=== PATIENT | female | born 1945 | race Caucasian/White ===

== ENCOUNTER 2018-03-02 10:18 | Emergency (ER) | payer OTHER ==
--- NOTE | 2018-03-02 11:47 | ER ---
Nurse's Notes [facility] Name: Danielle Henderson Age: 72 yrs Sex: Female : 1945 Arrival Date: 03/02/2018 Time: 10:23 Bed 12 Private MD: Pérez Dietz Diagnosis: Pain in right foot Presentation: 03/02 10:26 Presenting complaint: Patient states: "i have injured my right arch and ankle area, i tw2 was helping my youngest move this weekend". Transition of care: patient was not received from another setting of care. Onset of symptoms was March 02, 2018. Care prior to arrival: None. 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 - Social history:: Smoking status: Patient/guardian denies using tobacco. Screenin:58 Abuse screen: Denies threats or abuse. Nutritional screening: No deficits noted. tw2 Tuberculosis screening: No symptoms or risk factors identified. Fall Risk None identified. Assessment: 10:58 General: Appears in no apparent distress. well groomed, Behavior is calm, cooperative, tw2 appropriate for age. Pain: Complains of pain in medial aspect of right foot, anterior aspect of right ankle and dorsum of right foot. 11:24 Reassessment: Patient appears in no apparent distress at this time. No changes from tw2 previously documented assessment. Patient and/or family updated on plan of care and expected duration. Pain level reassessed. Patient is alert, oriented x 3, equal unlabored respirations, skin warm/dry/pink. Vital Signs: 10:27 BP 153 / 81; Pulse 86; Resp 17; Temp 98.8(O); Pulse Ox 98% on R/A; Weight 77.11 kg (R); tw2 Height 5 ft. 1 in. (154.94 cm) (R); Pain 6/10; 11:33 BP 146 / 82; Pulse 81; Resp 17; Pulse Ox 97% on R/A; Pain 5/10; tw2 10:27 Body Mass Index 32.12 (77.11 kg, 154.94 cm) tw2 ED Course: 10:23 Patient arrived in ED. mr 10:23 Pérez Dietz MD is Private Physician. mr 10:27 Triage completed. tw2 10:30 Arm band placed on. tw2 10:36 Kareem Keith PA is PHCP. jr8 10:36 Loki Greene MD is Attending Physician. jr8 10:58 Donna Kumar, RN is Primary Nurse. tw2 10:58 Bed in low position. Call light in reach. Adult w/ patient. tw2 10:58 No provider procedures requiring assistance completed. tw2 11:44 XRAY Foot RIGHT 3 View In Process Unspecified. EDMS 11:45 Tristan Hernandez DPM is Referral Physician. jr8 11:58 Patient did not have IV access during this emergency room visit. hb Administered Medications: No medications were administered Outcome: 11:46 Discharge ordered by MD. jr8 11:57 Discharged to home via wheelchair, with family. hb 11:57 Condition: stable 11:57 Discharge instructions given to patient, family, Instructed on discharge instructions, follow up and referral plans. Demonstrated understanding of instructions, follow-up care. 11:58 Patient left the ED. hb Signatures: Dispatcher [employer] EDIveth Edward mr Kareem Keith PA PA jr8 Leanna Pugh RN RN Donna Kumar RN RN tw2
--- NOTE | 2018-03-02 11:47 | EDPHYS ---
Physician Documentation [facility] Name: Danielle Henderson Age: 72 yrs Sex: Female : 1945 Arrival Date: 03/02/2018 Time: 10:23 Bed 12 Private MD: Pérez Dietz ED Physician Loki Greene HPI: 03/02 11:11 This 72 yrs old Female presents to ER via Wheelchair with complaints of Foot jr8 Pain. 11:11 The patient presents with pain, tenderness. The complaints affect the medial aspect of jr8 right foot. Context: The problem was sustained at home, resulted from an unknown cause. Onset: The symptoms/episode began/occurred gradually, 2 day(s) ago. Modifying factors: The symptoms are alleviated by nothing. the symptoms are aggravated by weight bearing. Associated signs and symptoms: Pertinent positives:. Severity of symptoms: At their worst the symptoms were mild, in the emergency department the symptoms are unchanged. The patient has not experienced similar symptoms in the past. The patient has not recently seen a physician. Patient stated that she was helping relative move boxes and other items the other day. Now having right foot pain. Worse with weight bearing . 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 - Social history:: Smoking status: Patient/guardian denies using tobacco. ROS: 11:11 Eyes: Negative for injury, pain, redness, and discharge, ENT: Negative for injury, jr8 pain, and discharge, Neck: Negative for injury, pain, and swelling, Cardiovascular: Negative for chest pain, palpitations, and edema, Respiratory: Negative for shortness of breath, cough, wheezing, and pleuritic chest pain, Abdomen/GI: Negative for abdominal pain, nausea, vomiting, diarrhea, and constipation, Back: Negative for injury and pain, Skin: Negative for injury, rash, and discoloration, Neuro: Negative for headache, weakness, numbness, tingling, and seizure. 11:11 MS/extremity: Positive for pain, tenderness, of the right foot. Exam: 11:11 Cardiovascular: Regular rate and rhythm with a normal S1 and S2. No gallops, murmurs, jr8 or rubs. Normal PMI, no JVD. No pulse deficits. Respiratory: Lungs have equal breath sounds bilaterally, clear to auscultation and percussion. No rales, rhonchi or wheezes noted. No increased work of breathing, no retractions or nasal flaring. Skin: Warm, dry with normal turgor. Normal color with no rashes, no lesions, and no evidence of cellulitis. Neuro: Awake and alert, GCS 15, oriented to person, place, time, and situation. Cranial nerves II-XII grossly intact. Motor strength 5/5 in all extremities. Sensory grossly intact. Cerebellar exam normal. Normal gait. 11:11 Musculoskeletal/extremity: Extremities: grossly normal except: noted in the medial aspect of right foot: pain, tenderness, ROM: intact in all extremities, full active range of motion, full passive range of motion, Circulation is intact in all extremities. Sensation intact. Vital Signs: 10:27 BP 153 / 81; Pulse 86; Resp 17; Temp 98.8(O); Pulse Ox 98% on R/A; Weight 77.11 kg (R); tw2 Height 5 ft. 1 in. (154.94 cm) (R); Pain 6/10; 11:33 BP 146 / 82; Pulse 81; Resp 17; Pulse Ox 97% on R/A; Pain 5/10; tw2 10:27 Body Mass Index 32.12 (77.11 kg, 154.94 cm) tw2 MDM: 10:36 Patient medically screened. jr8 11:45 Data reviewed: vital signs, nurses notes, radiologic studies, plain films, and as a jr8 result, I will discharge patient. Data interpreted: Pulse oximetry: on room air is 97 %. Interpretation: normal. Counseling: I had a detailed discussion with the patient and/or guardian regarding: the historical points, exam findings, and any diagnostic results supporting the discharge/admit diagnosis, radiology results, the need for outpatient follow up, a facility service associate, to return to the emergency department if symptoms worsen or persist or if there are any questions or concerns that arise at home. 03/02 11:10 Order name: XRAY Foot RIGHT 3 View jr8 Administered Medications: No medications were administered Disposition: 12:41 Co-signature as Attending Physician, Loki Greene MD. rn Disposition: 03/02/18 11:46 Discharged to Home. Impression: Pain in right foot. - Condition is Stable. - Discharge Instructions: Foot Contusion, Plantar Fasciitis. - Medication Reconciliation Form, Thank You Letter, Antibiotic Education, Prescription Opioid Use form. - Follow up: Tristan Hernandez DPM; When: 5 - 6 days; Reason: Recheck today's complaints, Continuance of care, Re-evaluation by your physician. - Problem is new. - Symptoms have improved. Signatures: Dispatcher [employer] EDMS Loki Greene MD MD rn Roszak, Josh, PA PA jr8 Leanna Pugh RN RN Donna Kumar RN RN tw2
--- NOTE | 2018-03-02 11:58 | RAD REPORT ---
EXAM DESCRIPTION: RAD - Foot Right 3 View - 03/02/2018 11:43 am CLINICAL HISTORY: Foot and ankle pain. COMPARISON: None. 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 Prominent c alcaneal spur is noted along the plantar aspect. No acute fracture or dislocation seen.
== END 2018-03-02 11:58 | disposition home or self-care (01) ==
LOC: ER 10:18
DX: M79.671 Pain in right foot (principal); Z88.6 Allergy status to analgesic agent; Z88.0 Allergy status to penicillin
CPT/HCPCS: 99283

== ENCOUNTER 2019-11-22 10:48 | Emergency (ER) | payer OTHER ==
[2019-11-22] MEDS ORDERED: MECLIZINE HCL 12.5 MG TAB ONE (11:28)
[2019-11-22] MEDS ORDERED: NA CHLORIDE 0.9% 500 ML ONE (11:28)
--- NOTE | 2019-11-22 11:43 | RAD REPORT ---
EXAM DESCRIPTION: CT - Ct Stroke Brain Wo Cont - 11/22/2019 11:33 am CLINICAL HISTORY: Dizziness COMPARISON: 2012 TECHNIQUE: Computed axial tomography of the head was obtained. All CT scans are performed using dose optimization technique as appropriate and may include automated exposure control or mA/KV adjustment according to patient size. FINDINGS: An intracranial bleed is not seen . The ventricles are normal in caliber. No extra-axial fluid collection is noted. Small low-density areas within the right frontal and left p arietal lobes are unchanged Right shunt traverses through the right and left lateral ventricles. The tip lies 2 centimeters into the left frontal lobe parenchyma. A was present within the frontal lobe parenchyma on the prior exam. Fluid within the sinuses/ mastoids is not seen. IMPRESSION: No acute intracranial abnormality is seen. If patient's symptoms persist MRI of the bra in would be recommended. Dr Greene of the emergency room was notified at 11:33 a.m. November 22, 2019
[2019-11-22 12:06] LABS: Absolute Lymphocytes (CBC) 1.8 K/uL (0.7-4.9); Basophils % 0.2 % (0-1.3); Hematocrit 41.8 % (36.0-45.0); Lymphocytes % 26.2 % (15.3-44.8); MPV 9.3 fL (7.6-11.3); RBC Red Blood Cell Count 4.61 M/uL (3.86-4.86)
[2019-11-22 12:13] LABS: BUN Blood Urea Nitrogen 16 mg/dL (7-18); Bicarbonate 26 mmol/L (21-32); Glucose Level 112 mg/dL (74-106); Magnesium 2.1 mg/dL (1.8-2.4); Potassium 4.4 mmol/L (3.5-5.1); Sodium Level 141 mmol/L (136-145); Troponin (Emerg Dept Use Only) < 0.02 ng/mL (0.0-0.045)
--- NOTE | 2019-11-22 13:06 | RAD REPORT ---
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 Surgical changes are noted to the skull addison lar to comparison. No acute chest, abdomen or pelvis finding. IMPRESSION: Negative shunt series
--- NOTE | 2019-11-22 13:30 | RAD REPORT ---
EXAM DESCRIPTION: MRI - MRA Neck W/Wo Cont - 11/22/2019 1:11 pm CLINICAL HISTORY: Stroke protocol study, dizziness, focal neurologic deficit, history of shunt COMPARISON: MRI brain same date, CT head same date TECHNIQUE: MR angiography of the cervical vasculature performed. Coronal imaging plane acquisition u tilized. A 17 MultiHance contrast volume was utilized. Coronal reformatted images were generated and reviewed. Vertical axis 3D rotational projections obtained using maximum intensity projection protoco l. FINDINGS: Aortic arch is 3 vessel configuration with no origins stenosis. Vertebral arteries show no origin gerardo noses. Vertebral arteries are codominant with no dissection or acute finding. Basilar artery unremark able as well. Bilateral common carotid and internal carotid arteries also without evidence for dissection or acute finding. Bilateral subclavian arteries are unremarkable. No measurable atherosclerotic change. IMPRESSION: Negative MRA neck examination.
--- NOTE | 2019-11-22 13:33 | RAD REPORT ---
EXAM DESCRIPTION: MRI - Brain W/Wo Cont - 11/22/2019 1:11 pm CLINICAL HISTORY: THERMAL CUTTER HELPER shunt, dizziness, stroke-like symptoms, focal neural deficit COMPARISON: CT head same date, MRA Head and neck same date TECHNIQUE: Sagittal and axial T1-weighted images were obtained. Axial PD/heavily T2-weighted and T2- FLAIR images were obtained along with axial DWI/ADC mapping sequences. Coronal heavily T2 weighted s equence obtained. Axial and coronal post-contrast T1-weighted images were also obtained. A 17 ml Mul tihance contrast following utilized. FINDINGS: No intracranial hemorrhage, mass or acute infarction. There is no edema or shift of midli ne structures. No extra-axial fluid collections. Santos-matter/white matter junction is preserved. Sig nal voids are seen as a normal finding in the major intracranial vessels. THERMAL CUTTER HELPER shunt is in place enteri ng from a right parietal entry site. Tubing traverses the lateral ventricles with the tip of the shun t tube in the brain parenchyma of the left frontal lobe. No ventriculomegaly. Scattered white matter T2 hyperintensities are present most likely chronic ischemic change. Brainstem, thalamus and basal ga nglia tissues are generally spared any measurable disease. Minimal encephalomalacia at the superior a spect right frontal lobe in the region of the right craniotomy. Post-contrast images show normal enhancement. No dural thickening. Mastoid air cells and paranasal sinuses are clear. IMPRESSION: No acute infarction. No hemorrhage, mass or acute intracranial finding. Mild chronic ischemic change with little identifiable volume loss. Ventricles are normal in size.
--- NOTE | 2019-11-22 13:35 | RAD REPORT ---
EXAM DESCRIPTION: MRI - MRA Head Wo Cont - 11/22/2019 1:10 pm CLINICAL HISTORY: CVA, dizziness, stroke-like symptoms COMPARISON: None. TECHNIQUE: Axial and coronal 3D uanl-sq-nelosi image acquisition was performed. 3D rotational images were generated with source and reconstruction images reviewed. Horizontal and vertical axis rotation al views generated using MIP protocol. FINDINGS: No aneurysm or vascular malformation. Basilar artery the low. From skullbase determination the bilateral internal carotid arteries show no dissection, stenosis or acute finding. Right anterio r cerebral artery A1 segment is absent as a normal variant. The anterior communicating artery is pres ent. The anterior cerebral and middle cerebral artery distribution show no occlusion, focal stenosis or significant atherosclerotic change. Right posterior cerebral artery is unremarkable. There are mod erate areas of atherosclerotic narrowing in the P2 and P3 branches of the left posterior cerebral art smita. No acute MRI correlate in the distribution of the left PROPULSION MACHINERY SERVICE ENGINEER. IMPRESSION: Moderately prominent atherosclerotic changes are present in the left posterior cerebral artery. MRI imaging shows no acute correlate in the distribution of the left PROPULSION MACHINERY SERVICE ENGINEER. Remainder of the examination shows no significant intracranial atherosclerotic change, dissection or acute finding.
--- NOTE | 2019-11-22 14:04 | EDPHYS ---
Physician Documentation [facility] Name: Danielle Henderson Age: 74 yrs Sex: Female : 1945 Arrival Date: 11/22/2019 Time: 10:49 Bed 16 Private MD: Pérez Dietz ED Physician Loki Greene HPI: 11/22 11:17 This 74 yrs old Female presents to ER via Wheelchair with complaints of rn Dizziness. 11:17 The patient presents with feeling off balance. Onset: The symptoms/episode rn began/occurred yesterday. Modifying factors: The symptoms are alleviated by holding head still, lying down, the symptoms are aggravated by movement of head, standing up, changing position. Severity of symptoms: At their worst the symptoms were moderate in the emergency department the symptoms are unchanged. The patient has not experienced similar symptoms in the past. The patient has not recently seen a physician. Reports since dinner yesterday feels off balance, dizziness, no other focal neurological complaint, called pcp, told to come in because has shunt. No shunt problems since placement in , no fever or head injury. No vomiting. NO vision of speech problems.. 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 - Social history:: Smoking status: Patient/guardian denies using tobacco. - Ebola Screening: : Patient denies travel to an Ebola-affected area in the 21 days before illness onset. - Family history:: not pertinent. - Hospitalizations: : No recent hospitalization is reported. ROS: 11:17 Constitutional: Negative for fever, chills, and weight loss, Eyes: Negative for injury, rn pain, redness, and discharge, Neck: Negative for injury, pain, and swelling, Cardiovascular: Negative for chest pain, palpitations, and edema, Respiratory: Negative for shortness of breath, cough, wheezing, and pleuritic chest pain, Abdomen/GI: Negative for abdominal pain, nausea, vomiting, diarrhea, and constipation, MS/Extremity: Negative for injury and deformity, Skin: Negative for injury, rash, and discoloration, Neuro: Negative for headache, weakness, numbness, tingling, and seizure. Exam: 11:17 Constitutional: This is a well developed, well nourished patient who is awake, alert, rn and in no acute distress. Head/Face: Normocephalic, atraumatic. Eyes: Pupils equal round and reactive to light, extra-ocular motions intact. Lids and lashes normal. Conjunctiva and sclera are non-icteric and not injected. Cornea within normal limits. Periorbital areas with no swelling, redness, or edema. NO nystagmus. ENT: MMM Cardiovascular: Regular rate and rhythm. No pulse deficits. Respiratory: No increased work of breathing, no retractions or nasal flaring. Abdomen/GI: Soft, non-tender MS/ Extremity: Pulses equal, no cyanosis. Neurovascular intact. Full, normal range of motion. Equal circumference. Neuro: Awake and alert, GCS 15, oriented to person, place, time, and situation. Cranial nerves II-XII grossly intact. Motor strength 5/5 in all extremities. Sensory grossly intact. 11:22 ECG was reviewed by the Attending Physician. rn Vital Signs: 10:58 BP 159 / 66; Pulse 70; Resp 18; Temp 97.3; Pulse Ox 97% on R/A; Weight 77.11 kg (R); aj1 Height 5 ft. 1 in. (154.94 cm) (R); Pain 0/10; 13:33 BP 154 / 63; Pulse 60; Resp 18; Pulse Ox 99% on R/A; Pain 0/10; em 14:37 BP 140 / 67; Pulse 65; Resp 16; Pulse Ox 99% on R/A; Pain 0/10; em 10:58 Body Mass Index 32.12 (77.11 kg, 154.94 cm) aj1 MDM: 10:59 Patient medically screened. rn 12:16 Differential diagnosis: cardiac arrhythmia, CVA, generalized weakness, hypovolemia, rn idiopathic dizziness, TIA, vertigo. ED course: No acute findings on CT head, pending MRI brain, and shuntogram. Symptoms began yesterday, not TPA candidate if signs of CVA on MRI.. 14:01 Data reviewed: vital signs, nurses notes, lab test result(s), EKG, radiologic studies, rn CT scan, MRI, and as a result, I will discharge patient. Counseling: I had a detailed discussion with the patient and/or guardian regarding: the historical points, exam findings, and any diagnostic results supporting the discharge/admit diagnosis, lab results, radiology results, the need for further work-up and treatment in the hospital. Response to treatment: the patient's symptoms have markedly improved after treatment, and as a result, I will discharge patient. ED course: Improvement with meclizine, no acute findings to suggest shunt malfunction, MRI brain and neck no acute findings to suggest CVA, will dc with meclizine and will f/u with her neurologist Dr. Esposito. . 11/22 11:14 Order name: Magnesium; Complete Time: 13:07 rn 11/22 11:14 Order name: Troponin (emerg Dept Use Only); Complete Time: 13:07 rn 11/22 11:14 Order name: Basic Metabolic Panel; Complete Time: 13:07 rn 11/22 11:14 Order name: CBC with Diff; Complete Time: 13:07 rn 11/22 11:14 Order name: Protime (+inr); Complete Time: 13:07 rn 11/22 11:14 Order name: Ptt, Activated; Complete Time: 13:07 rn 11/22 11:14 Order name: CT Stroke Brain w/o Contrast; Complete Time: 11:56 rn 11/22 11:15 Order name: Shuntogram XRAY; Complete Time: 13:52 rn 11/22 11:56 Order name: MRA Head Wo Cont; Complete Time: 13:52 EDIA 11/22 11:58 Order name: MRA Neck W/Wo Cont; Complete Time: 13:52 EDIA 11/22 11:58 Order name: Brain W/Wo Cont; Complete Time: 13:52 EDMS 11/22 11:14 Order name: EKG; Complete Time: 11:15 rn 11/22 11:14 Order name: Accucheck; Complete Time: 11:52 rn 11/22 11:14 Order name: Cardiac monitoring; Complete Time: : rn 11/22 11:14 Order name: EKG - Nurse/Tech; Complete Time: : rn 11/22 11:14 Order name: IV Saline Lock; Complete Time: 11:52 rn 11/22 11:14 Order name: Labs collected and sent; Complete Time: : rn 11/22 11:14 Order name: NPO; Complete Time: : rn 11/22 11:14 Order name: O2 Per Protocol; Complete Time: : rn 11/22 11:14 Order name: O2 Sat Monitoring; Complete Time: : rn 11/22 11:14 Order name: Stroke Swallow Screen; Complete Time: :33 rn EC: Rate is 64 beats/min. Rhythm is regular. QRS [place] is Normal. NH interval is normal. QRS rn interval is normal. QT interval is normal. No Q waves. T waves are Normal. No ST changes noted. Clinical impression: Normal ECG. Interpreted by me. Reviewed by me. Administered Medications: :31 Drug: Meclizine 50 mg Route: PO; em 13:29 Follow up: Response: No adverse reaction; Marked relief of symptoms em 13:29 Drug: NS 0.9% 500 ml Route: IV; Rate: bolus; Site: right wrist; em 14:36 Follow up: IV Status: Completed infusion; IV Intake: 500ml em Disposition: 11/22/19 14:03 Discharged to Home. Impression: Vertigo. - Condition is Stable. - Discharge Instructions: Vertigo. - Prescriptions for Zofran ODT 4 mg Oral tablet,disintegrating - place 1 tablet by TRANSLINGUAL route every 8 hours As needed; 20 tablet. Meclizine 25 mg Oral Tablet - take 1 tablet by ORAL route every 8 hours As needed; 30 tablet. - Medication Reconciliation Form, Thank You Letter, Antibiotic Education, Prescription Opioid Use form. - Follow up: Osorio Esposito MD; When: 5 - 6 days; Reason: Recheck today's complaints, Re-evaluation by your physician. - Problem is new. - Symptoms have improved. Signatures: Dispatcher [employer] EDDanielle Oglesby, RN RN aj1 Delfin Hope, CONNECTION WORKER CONNECTION WORKER em Loki Greene MD MD government teacher: (The following items were deleted from the chart) 11:56 11:16 MR STROKE PROTOCOL+MRI.RAD.BRZ ordered. EDMS EDMS 14:37 11:32 Urine Dipstick-Ancillary ordered. rn em 14:38 14:03 11/22/2019 14:03 Discharged to Home. Impression: Vertigo. Condition is Stable. em Forms are Medication Reconciliation Form, Thank You Letter, Antibiotic Education, Prescription Opioid Use. Follow up: Osorio Esposito; When: 5 - 6 days; Reason: Recheck today's complaints, Re-evaluation by your physician. Problem is new. Symptoms have improved. rn
--- NOTE | 2019-11-22 14:04 | ER ---
Nurse's Notes [facility] Name: Danielle Henderson Age: 74 yrs Sex: Female : 1945 Arrival Date: 11/22/2019 Time: 10:49 Bed 16 Private MD: Pérez Dietz Diagnosis: Vertigo Presentation: 11/22 10:54 Presenting complaint: Patient states: She has been dizziness since 8:30 last night, aj1 patient reports that she spoke with Dr. Dietz's office and they advised her to come the emergency room because she has a RES COUNSELOR shunt that they wanted to make sure was still functioning correctly. Transition of care: patient was not received from another setting of care. Onset of symptoms was November 21, 2019 at 20:30. Risk Assessment: Do you want to hurt yourself or someone else? Patient reports no desire to harm self or others. Initial Sepsis Screen: Does the patient meet any 2 criteria? No. Patient's initial sepsis screen is negative. Does the patient have a suspected source of infection? No. Patient's initial sepsis screen is negative. Care prior to arrival: None. 10:54 Method Of Arrival: Wheelchair aj1 10:54 Acuity: JACOB 3 aj1 Triage Assessment: 10:58 General: Appears in no apparent distress. comfortable, Behavior is calm, cooperative, aj1 appropriate for age. Pain: Denies pain. Neuro: Level of Consciousness is awake, alert, obeys commands, Oriented to person, place, time, situation. Cardiovascular: Patient's skin is warm and dry. Respiratory: Airway is patent Respiratory effort is even, unlabored, Respiratory pattern is regular, symmetrical. 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 - Social history:: Smoking status: Patient/guardian denies using tobacco. - Ebola Screening: : Patient denies travel to an Ebola-affected area in the 21 days before illness onset. - Family history:: not pertinent. - Hospitalizations: : No recent hospitalization is reported. Screenin:23 Abuse screen: Denies threats or abuse. Nutritional screening: No deficits noted. em Tuberculosis screening: No symptoms or risk factors identified. Fall Risk None identified. 11:30 Patient has been NPO before screening. The patient is alert, able to follow commands. em The patient does not exhibit slurred or garbled speech The patient is not exhibiting difficulty speaking. The patient does not exhibit difficulty understanding words. The patient is able to swallow own secretions with no drooling or need for suction. Patient tolerated one teaspoon of water. No drooling, immediate coughing, gurgling, or clearing of the throat was noted. The patient tolerated 90mL of water. No drooling, immediate coughing, gurgling, or clearing of the throat was noted. The patient passed the bedside swallow screening. Oral medications may be given as ordered. Contact Physician for further diet orders. Provider notified of bedside swallow screening results: Loki Greene MD. Assessment: 11:25 General: Appears in no apparent distress. comfortable, Behavior is calm, cooperative, em Denies fever. Pain: Denies pain. Neuro: Level of Consciousness is awake, alert, obeys commands, Oriented to person, place, time, situation, Appropriate for age Forms Analysis Manager are equal bilaterally Moves all extremities. Speech is normal, Facial symmetry appears normal, Reports dizziness. Cardiovascular: Capillary refill < 3 seconds Patient's skin is warm and dry. Respiratory: Airway is patent Respiratory effort is even, unlabored, Respiratory pattern is regular, symmetrical. GI: Patient currently denies nausea, vomiting. Derm: Skin is intact, Skin is pink, warm \T\ dry. Musculoskeletal: Capillary refill < 3 seconds, Range of motion: intact in all extremities. 11:30 Reassessment: wheeled to [place] via wheelchair. em 13:20 Reassessment: Patient appears in no apparent distress at this time. Patient and/or em family updated on plan of care and expected duration. Pain level reassessed. Patient is alert, oriented x 3, equal unlabored respirations, skin warm/dry/pink. returned from CT/MRI, reports s/s have improved. 14:36 Reassessment: Patient appears in no apparent distress at this time. Patient and/or em family updated on plan of care and expected duration. Pain level reassessed. Patient is alert, oriented x 3, equal unlabored respirations, skin warm/dry/pink. Patient states symptoms have improved. Vital Signs: 10:58 BP 159 / 66; Pulse 70; Resp 18; Temp 97.3; Pulse Ox 97% on R/A; Weight 77.11 kg (R); aj1 Height 5 ft. 1 in. (154.94 cm) (R); Pain 0/10; 13:33 BP 154 / 63; Pulse 60; Resp 18; Pulse Ox 99% on R/A; Pain 0/10; em 14:37 BP 140 / 67; Pulse 65; Resp 16; Pulse Ox 99% on R/A; Pain 0/10; em 10:58 Body Mass Index 32.12 (77.11 kg, 154.94 cm) aj1 ED Course: 10:49 Patient arrived in ED. as 10:49 Pérez Dietz MD is Private Physician. as 10:56 Triage completed. aj1 10:58 Arm band placed on Patient placed in an exam room. aj1 10:59 Loki Greene MD is Attending Physician. rn 11:01 Delfin Hope LVN is Primary Nurse. em 11:23 Patient has correct armband on for positive identification. Placed in gown. Bed in low em position. Call light in reach. Pulse ox on. NIBP on. 11:23 EKG done, by ED staff, reviewed by Loki Greene MD. jb1 11:33 CT Stroke Brain w/o Contrast In Process Unspecified. EDMS 12:11 Shuntogram XRAY In Process Unspecified. EDMS 13:11 MRA Head Wo Cont In Process Unspecified. EDMS 13:11 MRA Neck W/Wo Cont In Process Unspecified. EDMS 13:11 Brain W/Wo Cont In Process Unspecified. EDMS 14:02 Osorio Esposito MD is Referral Physician. rn 14:35 No provider procedures requiring assistance completed. IV discontinued, intact, em bleeding controlled, No redness/swelling at site. Pressure dressing applied. Administered Medications: 11:31 Drug: Meclizine 50 mg Route: PO; em 13:29 Follow up: Response: No adverse reaction; Marked relief of symptoms em 13:29 Drug: NS 0.9% 500 ml Route: IV; Rate: bolus; Site: right wrist; em 14:36 Follow up: IV Status: Completed infusion; IV Intake: 500ml em Intake: 14:36 IV: 500ml; Total: 500ml. em Outcome: 14:03 Discharge ordered by . rn 14:35 Discharged to home via wheelchair, with family. em 14:35 Condition: good 14:35 Discharge instructions given to patient, family, Instructed on discharge instructions, follow up and referral plans. medication usage, Demonstrated understanding of instructions, follow-up care, medications, Prescriptions given X 2. 14:38 Patient left the ED. em Signatures: Dispatcher [employer] Qamar Santiago jb1 Danielle De La Cruz RN RN aj1 Delfin Hope, BLINDSTITCH LINING FELLER BLINDSTITCH LINING FELLER em Loraine Freitas Roman, MD MD rn
[2019-11-22 14:46] VITALS: TEMP 97.3
[2019-11-22 14:49] VITALS: O2SAT 99
[2019-11-22 14:50] VITALS: BP 140/67
--- NOTE | 2019-11-23 08:07 | EKG ---
Test Date: 2019-11-22 Test Time: 11:18:34 Tank Furnace Operator: JANA MEASUREMENT RESULTS: Intervals: Rate: 64 MD: 140 QRSD: 68 QT: 400 QTc: 412 [place]: P: 54 MD: 140 QRS: 22 T: 39 INTERPRETIVE STATEMENTS: Normal sinus rhythm Normal ECG Compared to ECG 04/28/2007 11:24:23 Sinus bradycardia no longer present Electronically Signed On 11-23-19 08:07:08 MICROBIOLOGY LABORATORY MANAGER by Aaron Hoffman
== END 2019-11-22 14:38 | disposition home or self-care (01) ==
LOC: ER 10:48
DX: R42 Dizziness and giddiness (principal); E03.9 Hypothyroidism, unspecified; E78.5 Hyperlipidemia, unspecified; Z79.82 Long term (current) use of aspirin; Z88.0 Allergy status to penicillin; Z88.5 Allergy status to narcotic agent; Z88.8 Allergy status to other drugs, medicaments and biological substances
CPT/HCPCS: 93005; 85025; 80048; 36415; 83735; 85610; 85730; 84484; 70450; 75809; 49427; 70553; 70544; 70549; 96360; 99284; A9577; J7040; J8597

== ENCOUNTER 2021-09-29 07:40 | Emergency (ER) | payer OTHER ==
--- NOTE | 2021-09-29 08:35 | ER ---
Nurse's Notes [facility] Name: Danielle Henderson Age: 76 yrs Sex: Female : 1945 Arrival Date: 09/29/2021 Time: 07:43 Bed 9 Private MD: Pérez Dietz Diagnosis: Calcific tendinitis, unspecified upper arm Presentation: 09/29 07:48 Chief complaint: Patient states: Pt reports woke at 0300 with right elbow pain that jl7 radiates to hand, denies trauma. Coronavirus screen: At this time, the client does not indicate any symptoms associated with coronavirus-19. Ebola Screen: No symptoms or risks identified at this time. Initial Sepsis Screen: Does the patient meet any 2 criteria? No. Patient's initial sepsis screen is negative. Does the patient have a suspected source of infection? No. Patient's initial sepsis screen is negative. Risk Assessment: Do you want to hurt yourself or someone else? Patient reports no desire to harm self or others. Onset of symptoms was September 29, 2021 at 03:00. Care prior to arrival: None. 07:48 Method Of Arrival: Ambulatory jl7 07:48 Acuity: JACOB 4 jl7 Triage Assessment: 07:49 General: Appears in no apparent distress. uncomfortable, Behavior is calm, cooperative, jl7 appropriate for age. Pain: Complains of pain in right elbow Pain currently is 9 out of 10 on a pain scale. Neuro: Level of Consciousness is awake, alert, obeys commands, Oriented to person, place, time, situation. Cardiovascular: Patient's skin is warm and dry. Respiratory: Airway is patent Respiratory effort is even, unlabored, Respiratory pattern is regular, symmetrical. Derm: Skin is pink, warm \T\ dry. Musculoskeletal: Range of motion: intact in all extremities. Historical: - Allergies: 07:49 Codeine; jl7 07:49 Darvon; jl7 07:49 PENICILLINS; jl7 07:49 Propoxyphene; jl7 - Home Meds: 07:49 aspirin 81 mg Oral chew 1 tab once daily [Active]; levothyroxine 75 mcg tab once daily jl7 [Active]; pantoprazole 40 mg Oral TbEC 1 tab once daily [Active]; rivastigmine tartrate 3 mg Oral cap 2 times per day [Active]; tolterodine 4 mg Oral cp24 1 cap once daily [Active]; - PMHx: 07:49 Hyperlipidemia; Hypothyroidism; shunt in brain; jl7 - PSHx: 07:49 Total abdominal hysterectomy; Cholecystectomy; section; jl7 - Immunization history:: Client reports receiving the 2nd dose of the Covid vaccine, Pfizer. - Social history:: Smoking status: Patient denies any tobacco usage or history of. Screenin:26 Abuse screen: Denies threats or abuse. Denies injuries from another. Nutritional jl7 screening: No deficits noted. Tuberculosis screening: No symptoms or risk factors identified. Fall Risk None identified. Assessment: 08:26 General: see triage. jl7 Vital Signs: 07:48 BP 151 / 84; Pulse 76; Resp 17; Temp 97.2; Pulse Ox 98% ; Weight 78.02 kg; Height 5 ft. jl7 1 in. (154.94 cm); Pain 9/10; 07:48 Body Mass Index 32.50 (78.02 kg, 154.94 cm) jl7 ED Course: 07:43 Patient arrived in ED. mr 07:43 Pérez Dietz MD is Private Physician. mr 07:49 Triage completed. jl7 07:49 Arm band placed on right wrist. jl7 07:51 Олег Alvarado, RN is Primary Nurse. jl7 07:55 Odin Myles MD is Attending Physician. sp3 08:26 Patient has correct armband on for positive identification. Bed in low position. Call jl7 light in reach. Side rails up X 1. 08:26 EKG done, by ED staff, reviewed by Odin Myles MD. jl7 08:27 No provider procedures requiring assistance completed. Patient did not have IV access jl7 during this emergency room visit. 08:28 Sling applied to right arm. jl7 Administered Medications: No medications were administered Outcome: 08:34 Discharge ordered by . sp3 08:47 Discharged to home ambulatory, with family. jl7 08:47 Condition: stable 08:47 Discharge instructions given to patient, family, Instructed on discharge instructions, follow up and referral plans. medication usage, Demonstrated understanding of instructions, follow-up care, medications, Prescriptions given X 1. 08:47 Patient left the ED. jl7 Signatures: Beatris Monreal mr Олег Alvarado, RN RN jl7 Odin Myles, MD sp3
--- NOTE | 2021-09-29 08:35 | EDPHYS ---
Physician Documentation [facility] Name: Danielle Henderson Age: 76 yrs Sex: Female : 1945 Arrival Date: 09/29/2021 Time: 07:43 Bed 9 Private MD: Pérez Dietz ED Physician Odin Myles HPI: 09/29 08:21 This 76 yrs old Female presents to ER via Ambulatory with complaints of Arm sp3 Pain. 08:21 76-year-old female with history of hypothyroidism, GERD, cerebral shunt now presents to 3 the ED for right arm pain since yesterday evening. Patient denies any trauma that she can recall or exertion that may have caused her pain. Pain is described as in the elbow extending down into the hand and patient points to the antecubital fossa as the primary source. She denies any numbness or tingling or weakness or rash. Review of systems she denies any headache, neck pain, chest pain, back pain, shortness of breath, abdominal pain, pain in any other joints, travel history, known sick contacts, insect bites, fever, URI symptoms, known COVID-19 contacts, any other ROS at this time.. Historical: - Allergies: 07:49 Codeine; jl7 07:49 Darvon; jl7 07:49 PENICILLINS; jl7 07:49 Propoxyphene; jl7 - Home Meds: 07:49 aspirin 81 mg Oral chew 1 tab once daily [Active]; levothyroxine 75 mcg tab once daily jl7 [Active]; pantoprazole 40 mg Oral TbEC 1 tab once daily [Active]; rivastigmine tartrate 3 mg Oral cap 2 times per day [Active]; tolterodine 4 mg Oral cp24 1 cap once daily [Active]; - PMHx: 07:49 Hyperlipidemia; Hypothyroidism; shunt in brain; jl7 - PSHx: 07:49 Total abdominal hysterectomy; Cholecystectomy; section; jl7 - Immunization history:: Client reports receiving the 2nd dose of the Covid vaccine, Pfizer. - Social history:: Smoking status: Patient denies any tobacco usage or history of. ROS: 08:22 Constitutional: Negative for fever, chills, and weight loss, Eyes: Negative for injury, sp3 pain, redness, and discharge, ENT: Negative for injury, pain, and discharge, Neck: Negative for injury, pain, and swelling, Cardiovascular: Negative for chest pain, palpitations, and edema, Respiratory: Negative for shortness of breath, cough, wheezing, and pleuritic chest pain, Abdomen/GI: Negative for abdominal pain, nausea, vomiting, diarrhea, and constipation, Back: Negative for injury and pain, Skin: Negative for injury, rash, and discoloration, Neuro: Negative for headache, weakness, numbness, tingling, and seizure, Psych: Negative for depression, anxiety, suicide ideation, homicidal ideation, and hallucinations, Allergy/Immunology: Negative for hives, rash, and allergies. 08:22 MS/extremity: Positive for Pain in the right antecubital fossa extending distally as described in the HPI.. 08:22 All other systems are negative. Exam: 08:23 Constitutional: This is a well developed, well nourished patient who is awake, alert, sp3 and in no acute distress. Head/Face: Normocephalic, atraumatic. Eyes: Pupils equal round and reactive to light, extra-ocular motions intact. Lids and lashes normal. Conjunctiva and sclera are non-icteric and not injected. Cornea within normal limits. Periorbital areas with no swelling, redness, or edema. ENT: Nares patent. No nasal discharge, no septal abnormalities noted. External auditory canals are clear. Oropharynx with no redness, swelling, or masses, exudates, or evidence of obstruction, uvula midline. Mucous membranes moist. Neck: Trachea midline, no thyromegaly or masses palpated, and no cervical lymphadenopathy. Supple, full range of motion without nuchal rigidity, or vertebral point tenderness. No Meningismus. Chest/axilla: Normal chest wall appearance and motion. Nontender with no deformity. No lesions are appreciated. Cardiovascular: Regular rate and rhythm with a normal S1 and S2. No gallops, murmurs, or rubs. Normal PMI, no JVD. No pulse deficits. Respiratory: Lungs have equal breath sounds bilaterally, clear to auscultation and percussion. No rales, rhonchi or wheezes noted. No increased work of breathing, no retractions or nasal flaring. Abdomen/GI: Soft, non-tender, with normal bowel sounds. No distension or tympany. No guarding or rebound. No evidence of tenderness throughout. Skin: Warm, dry with normal turgor. Normal color with no rashes, no lesions, and no evidence of cellulitis. Neuro: Awake and alert, GCS 15, oriented to person, place, time, and situation. Cranial nerves II-XII grossly intact. Motor strength 5/5 in all extremities. Sensory grossly intact. Cerebellar exam normal. Normal gait. Psych: Awake, alert, with orientation to person, place and time. Behavior, mood, and affect are within normal limits. 08:23 Musculoskeletal/extremity: Exam is negative for Extremity exam is normal except for the right elbow. Patient has pain to tendon palpation in the antecubital fossa with reproducible pain distally. Patient has normal range of motion and normal neurological exam including two-point discrimination, pain and temperature sensation, strength, proprioception. Capillary refill is normal and there is no pain in the anatomical snuffbox. Pulses are normal and regular.. 08:31 ECG was reviewed by the Attending Physician. EKG demonstrates normal sinus rhythm at 60 sp3 bpm with normal intervals including QTC, normal QRS, normal axis, and normal ST/T segments with no evidence of ischemia. Normal EKG as per my read. Vital Signs: 07:48 BP 151 / 84; Pulse 76; Resp 17; Temp 97.2; Pulse Ox 98% ; Weight 78.02 kg; Height 5 ft. jl7 1 in. (154.94 cm); Pain 9/10; 07:48 Body Mass Index 32.50 (78.02 kg, 154.94 cm) jl7 MDM: 07:56 Patient medically screened. sp3 08:25 Data reviewed: vital signs, nurses notes, EKG. ED course: 76-year-old female with right sp3 arm tendinitis. Unknown reason as to why her tendons are inflamed. At this point clinically I am not highly suspicious for acute coronary syndrome, vascular compromise including thoracic dissection, pulmonary process, or infectious process. Patient is in no acute distress and can freely move her arm. Will obtain EKG and place patient in a sling and discharged on oral NSAIDs with PCP follow-up. Strict instructions to return were given including worsening symptoms, back pain, chest pain, numbness or tingling, any other concerns that she may have.. 09/29 08:04 Order name: EKG - Nurse/Tech; Complete Time: 08:26 sp3 09/29 08:04 Order name: Jomar; Complete Time: 08: sp3 Administered Medications: No medications were administered Disposition Summary: 09/29/21 08:34 Discharge Ordered Location: Home sp3 Condition: Stable sp3 Diagnosis - Calcific tendinitis, unspecified upper arm sp3 Followup: sp3 - With: Private Physician - When: - Reason: Recheck today's complaints Discharge Instructions: - Discharge Summary Sheet sp3 - Tendinitis sp3 Forms: - Medication Reconciliation Form sp3 - Thank You Letter sp3 - Antibiotic Education sp3 - Prescription Opioid Use sp3 Prescriptions: - Diclofenac Sodium 75 mg Oral Tablet Sustained Release - take 1 tablet by ORAL route 2 times per day; 30 tablet; Refills: 0, Product sp3 Selection Permitted Signatures: Олег Alvarado RN RN jl7 Odin Myles MD MD sp3
[2021-09-29 09:04] VITALS: BP 151/84; TEMP 97.2; O2SAT 98
--- NOTE | 2021-09-30 18:28 | EKG ---
Test Date: 2021-09-29 Test Time: 09:30:29 Riveting Machine Operator: DULCE MEASUREMENT RESULTS: Intervals: Rate: 59 DE: 132 QRSD: 62 QT: 404 QTc: 399 [place]: P: 44 DE: 132 QRS: 15 T: 35 INTERPRETIVE STATEMENTS: Sinus bradycardia Low voltage QRS Borderline ECG Compared to ECG 11/22/2019 11:18:34 Low QRS voltage now present Sinus rhythm no longer present Electronically Signed On 09-30-21 18:23:53 BINDERY PRODUCTION MANAGER by Delroy Snow
--- OUTSIDE RECORDS SUMMARY | 2021-10-05 15:01 | XMS REPORT | Continuity of Care Document ---
:1945 Author Organization [facility] t Address [address] [place] [address] [address] [place] [address] Care Team Providers Name Role Phone Ige-Odundonna_J_AH Attending Clinician Unavailable Messi Friend RN Attending Clinician Unavailable Only, Test Attending Clinician Unavailable Kip FLETCHER Attending Clinician Doctor Unassigned, Name Attending Clinician Unavailable UNKNOWN Attending Clinician Unavailable Lab, Fam Pob I Attending Clinician Unavailable Unknown Attending Clinician Unavailable ANENE Attending Clinician Unavailable Anene NURSE ORTHOPEDIC Attending Clinician Ige-Odundonna_J_AH Admitting Clinician Unavailable Payers Payer Name Policy Type Policy Number Effective Date Expiration Date Yoli reecekat REYNALDO/YAMILETH [id number] 2020 MEDICARE ADVANTAGE 00:00:00 Problems Condition Condition Condition Status Onset Resolution Last Treating Co mments Source Name Details Category Date Date Treatment Clinician Date Overactive Overactive Problem Active 2018-11 V illage bladder Bladder 2-03 Family 00:00: Practic 00 e Hypothyroi Hypothyroi Problem Active 2018-11 V illage dism dism 1- Family 00:00: Practic 00 e Gastroesop Gastroesop Problem Active 2018-11 V illage hageal hageal 12 Family reflux Reflux 00:00: Practic disease Disease 00 e Allergies, Adverse Reactions, Alerts Allergy Allergy Status Severity Reaction(s) Onset Inactive Treating Comm ents Source Name Type Date Date Clinician Codeine Allergy Active [place] [facility] Family substanc Practic e e PENICILL Allergy Active Hives [place] INS to Family substanc Practic e e NO KNOWN Drug Active [facility] NELDA Stafford itbrian of [facility] Social History Social Habit Start Date Stop Date Quantity Comments Source [facility] to [facility]2 [facility] sure [facility] Smoking Status Start Date Stop Date Source Unknown if ever smoked [facility] Medications Ordered Filled Start Stop Current Ordering Indication Dosage Frequency Signature Comments Components Source Medication Medication Date Date Medication? Clinician (SIG) Name Name levothyroxi levothyroxi No 1 Q1D levothyrox [facility] ne 75 mcg ne 75 mcg ine 75 mcg Family tablet Take tablet Take tablet Practic 1 tablet 1 tablet Take 1 e every day every day tablet by oral by oral every day route. route. by oral route. pantoprazol pantoprazol No 1 Q1D pantoprazo [place] e 40 mg e 40 mg le 40 mg Famil y tablet,pattie tablet,pattie tablet,del Practic yed release yed release ayed e Take 1 Take 1 release tablet tablet Take 1 every day every day tablet by oral by oral every day route. route. by oral route. rivastigmin rivastigmin No 1capsul BID rivastigmi [facility] e 3 mg e 3 mg e(s) ne 3 mg Family capsule capsule capsule Practi c Take 1 Take 1 Take 1 e capsule capsule capsule twice a day twice a day twice a by oral by oral day by route. route. oral route. tolterodine tolterodine No 1capsul Q1D tolterodin [facility] ER 4 mg ER 4 mg e(s) e ER 4 mg Fami ly capsule,ext capsule,ext capsule,ex Practic ended ended tended e release 24 release 24 release 24 hr Take 1 hr Take 1 hr Take 1 capsule capsule capsule every day every day every day by oral by oral by oral route. route. route. Procedures Procedure Date / Time Performed Performing Clinician [facility] e ASSIGNMENT OF BENEFITS 2020-12-04 17:04:38 Doctor Unassigned, No [facility] Branch Encounters Start End Encounter Admission Attending Care Care Encounter Source Date/Time Date/Time Type Type Clinicians Facility Department ID 2021-10-05 Outpatient Ige-Carlos P VFP [id number] -[address] [place] [address] 01:18:46 _J_AH [id number] Family Practic e 2021-03-10 2021-03-10 Outpatient [facility] [id number] [facility] 15:15:00 15:15:00 ity [facility] 2021-03-09 2021-03-09 Outpatient [facility] [id number] Univers 15:15:00 15:15:00 ity of [facility] 2021-02-17 2021-02-17 Outpatient [facility] [id number] Univers 14:50:00 14:50:00 [id number] ity of [facility] 2021-02-17 2021-02-17 Outpatient [facility] [id number] Univers 14:50:00 14:50:00 ity [facility] 2020-12-05 2020-12-05 Telephone CODI Friend [id number] Univers 00:00:00 00:00:00 Mago SHABAZZ [id number] i ty of [facility] [id number] Jorge as [phone] [facility] 019 Branch 2020-12-04 2020-12-04 Laboratory Only, Adc Test [facility] [id number] Univers 11:00:25 11:15:25 Only Moses Shin [id number] [place]y [id number] [phone] [facility] 353 Branch 2020-12-04 2020-12-04 Outpatient R [facility] [id number] Univers 10:15:00 10:15:00 [id number] ity of [facility] 2020-12-04 2020-12-04 Outpatient R [facility] [id number] Univers 10:15:00 10:15:00 ity of [facility] 2020-12-04 2020-12-04 Orders Doctor KINCAID [id number] Univers 00:00:00 00:00:00 Only Unassigned, MELE [id number] ity of [place] [facility] [id number] Jorge as [phone] [facility] 009 Branch 2020-10-23 2020-10-23 Outpatient R [facility] [id number] Univers 16:40:00 16:40:00 ity of [facility] 2020-10-23 2020-10-23 Outpatient R UNKNOWN, [facility] [id number] Univers 16:40:00 16:40:00 ATTENDING ity [facility] 2020-10-23 2020-10-23 Laboratory Lab, [facility] I [facility] [id number]. [id number] Univers 16:11:02 16:31:02 Only Unknown, Attending Health [id number] ity of [place] [id number] Jorge as Professio [phone] [address] Office [facility] 2020-08-24 2020-08-24 Outpatient R KAL, [facility] [id number] Univers 13:20:00 13:20:00 VELVET ity [facility] 2020-08-24 2020-08-24 Laboratory Lab, [facility] [id number] 12:59:35 13:19:35 Only [facility] I Health [id number] [place] [id number] Professio [phone] [place] [address] Office Building [facility] 2020-08-24 2020-08-24 Laboratory Lab, [facility] I [facility] 1.2. [id number] Univers 12:59:35 13:19:35 Only Anene, [facility] [id number] ity of [place] [id number] Jorge as Professio [phone] [address] Office Building [facility] 2020-02-21 2020-02-21 [facility] [place] [id number] [facility] 00:00:00 00:00:00 [facility] shantal kolb [employer]: Medical - Practi c [email or web address] [email or web address] [facility], [address] [address], [place] [address] , Ph. Results This patient has no known results.
== END 2021-09-29 08:47 | disposition home or self-care (01) ==
LOC: ER 07:40
DX: M65.221 Calcific tendinitis, right upper arm (principal); E03.9 Hypothyroidism, unspecified; K21.9 Gastro-esophageal reflux disease without esophagitis; E78.5 Hyperlipidemia, unspecified; Z98.2 Presence of cerebrospinal fluid drainage device; Z88.0 Allergy status to penicillin
CPT/HCPCS: 93005; 99283